=== PATIENT | female | born 1980 | race Caucasian/White ===

== ENCOUNTER 2017-05-18 10:05 | Day surgery (SDC) | payer BC, OTHER ==
[~2017-05-18] VITALS: Ht 167.6 cm; Wt 58.2 kg
[2017-05-18] MEDS ORDERED: SODIUM CHLORIDE 0.9% 1,000 ML IV ONE (10:46)
[2017-05-18 10:48] VITALS: BP 139/89
[2017-05-18] MEDS ORDERED: PLEASE ENTER HEIGHT AND WEIGHT MC SCH (11:00)
[2017-05-18] MEDS ORDERED: CYCL100C PO (11:09)
[2017-05-18] MEDS ORDERED: METO-93 PO (11:09)
[2017-05-18] MEDS ORDERED: PRED5TAB PO (11:09)
[2017-05-18] MEDS ORDERED: PRAV20TA2 PO (11:09)
[2017-05-18] MEDS ORDERED: LISI-167 PO (11:09)
[2017-05-18] MEDS ORDERED: ELET40TA PO (11:09)
[2017-05-18] MEDS ORDERED: EVER0.75 PO (11:09)
[2017-05-18] MEDS ORDERED: HEPARIN 1,000 UNITS/ML, 10ML ONE (12:03)
[2017-05-18] MEDS ORDERED: BIVALIRUDIN 250 MG ONE (12:03)
[2017-05-18] MEDS ORDERED: FENTANYL PF 100 MCG/2ML ONE ×2 (12:03→12:55)
[2017-05-18] MEDS ORDERED: VERAPAMIL 2.5 MG/ML, 2ML ONE (12:03)
[2017-05-18] MEDS ORDERED: NITROGLYCERIN 5 MG/ML, 10ML ONE (12:03)
[2017-05-18] MEDS ORDERED: DIPHENHYDRAMINE 50 MG/ML, 1ML ONE (12:03)
[2017-05-18] MEDS ORDERED: MIDAZOLAM 1 MG/ML, 5ML ONE ×2 (12:03→12:55)
[2017-05-18] MEDS ORDERED: SODIUM CHLORIDE 0.9% 1,000 ML IV SCH (13:28)
== END 2017-05-18 16:29 ==
LOC: CACL 10:05
PROVIDERS: ATTEND Internal Medicine Cardiovascular Disease
DX: I25.10 Atherosclerotic heart disease of native coronary artery without angina pectoris (principal); I10 Essential (primary) hypertension; N18.9 Chronic kidney disease, unspecified; E78.5 Hyperlipidemia, unspecified; G43.909 Migraine, unspecified, not intractable, without status migrainosus; Z94.1 Heart transplant status
CPT/HCPCS: 92978; 92979; 93458; 99156; 99157; C1753; C1769; C1887; C1894; J1200; J1644; J2250; J3010; Q9967; J0583

== ENCOUNTER 2018-03-09 07:38 | Emergency (ER) | payer BC ==
[~2018-03-09] VITALS: Ht 167.6 cm; Wt 59.0 kg
[~2018-03-09 07:38] MED LIST: CYCL100C PO; ELET40TA PO; EVER0.75 PO; LISI-167 PO; METO-93 PO; PRAV20TA2 PO; PRED5TAB PO
[2018-03-09] MEDS ORDERED: ONDANSETRON 2MG/ML, 2ML IVPush ONE (08:00)
[2018-03-09] MEDS ORDERED: SODIUM CHLORIDE 0.9% 1,000ML IVBOLUS ONE ×2 (08:00→09:30)
[2018-03-09] MEDS ORDERED: SODIUM CHLORIDE FLUSH 10ML SYR IVF ONE (08:00)
[2018-03-09] MEDS ORDERED: MORPHINE SULFATE 4 MG/ML, 1ML ONE ×2 (08:06→10:13)
[2018-03-09] MEDS ORDERED: ONDANSETRON 2MG/ML, 2ML ONE (08:06)
[2018-03-09] MEDS: MORPHINE SULFATE 4 MG/ML, 1ML IVPush PRN ×2 (08:19→10:17)
[2018-03-09 08:28] LABS: BASOPHILS # (AUTO) 0.01 x10^3/uL (0-0.1); BASOPHILS % (AUTO) 0 % (0-1); EOSINOPHILS # (AUTO) 0.05 x10^3/uL (0-0.4); EOSINOPHILS % (AUTO) 1 % (1-7); LYMPHOCYTES # (AUTO) 0.81 x10^3/uL (1-3.4); LYMPHOCYTES % (AUTO) 8 % (22-44); MD NO; MEAN CORPUSCULAR HEMOGLOBIN 30.1 pg (27.0-34.8); MEAN CORPUSCULAR HGB CONC 33.4 g/dL (32.4-35.8); MEAN CORPUSCULAR VOLUME 90.1 fL (80-100); MEAN PLATELET VOLUME 8.3 fL (7.4-10.4); MONOCYTES # (AUTO) 0.49 x10^3/uL (0.2-0.8); MONOCYTES % (AUTO) 5 % (2-9); NEUTROPHILS % (AUTO) 86 % (42-75); PLATELET COUNT 220 x10^3/uL (130-400); RED CELL DISTRIBUTION WIDTH 13.5 % (9.6-15.2)
[2018-03-09 08:36] LABS: RAPID INFLUENZA A Negative (Negative); RAPID INFLUENZA B Negative (Negative)
[2018-03-09 08:43] LABS: ALANINE AMINOTRANSFERASE 15 U/L (12-78); ANION GAP 7 mmol/L (5-15); CALCIUM 8.8 mg/dL (8.5-10.1); CHLORIDE 111 mmol/L (98-107); CREATININE 3.47 mg/dL (0.55-1.02)
[2018-03-09 08:46] LABS: ALKALINE PHOSPHATASE 64 U/L (45-117); BILIRUBIN,TOTAL 0.6 mg/dL (0.2-1.0); TOTAL PROTEIN 7.5 g/dL (6.4-8.2)
--- NOTE | 2018-03-09 09:03 | NUR ---
pt upright on gurney awake & more comfortable but continues to c/o DAVISON, responds approp to staff, NAD, comfort measures provided, zana light within akhil.
[2018-03-09] MEDS ORDERED: PROMETHAZINE 25 MG/ML, 1ML ONE (09:10)
[2018-03-09] MEDS ORDERED: SUMATRIPTAN 6MG/0.5ML SQ ONE ×2 (09:11→09:30)
[2018-03-09] MEDS ORDERED: PROMETHAZINE 25 MG/ML, 1ML IM ONE (09:30)
--- NOTE | 2018-03-09 09:57 | NUR ---
pt remains upright on gurney awake & more comfortable after meds, responds approp to staff, NAD, comfort measures provided, zana light within reach.
--- NOTE | 2018-03-09 11:00 | NUR ---
pt remains upright on gurney awake & mostly comfortable, responds approp to staff, NAD, comfort measures provided, zana light within reach.
--- NOTE | 2018-03-09 12:02 | NUR ---
pt upright on gurney awake & comfortable, responds approp to staff, NAD, comfort measures provided, mom at BS, call light within reach.
[2018-03-09 12:15] LABS: MICROSCOPIC NOT IND
[2018-03-09 12:18] LABS: CULTURE INDICATED? NO
[2018-03-09 12:19] LABS: HCG UR SG 1.011 (1.003-1.030)
[2018-03-09 12:38] VITALS: BP 154/105
--- NOTE | 2018-03-09 12:49 | NUR ---
Patient given discharge instructions and Rx, they have confirmed that they understand the instructions. Patient ambulatory with steady gait.
== END 2018-03-09 12:50 | disposition home or self-care (01) ==
LOC: ED 10:59
DX: J01.00 Acute maxillary sinusitis, unspecified (principal); K29.00 Acute gastritis without bleeding; I10 Essential (primary) hypertension; R50.9 Fever, unspecified; G43.909 Migraine, unspecified, not intractable, without status migrainosus; Z79.899 Other long term (current) drug therapy; Z94.1 Heart transplant status
CPT/HCPCS: 36415; 71045; 80053; 81003; 81025; 83605; 84145; 85025; 87040; 87400; 93005; 96361; 96372; 96374; 96375; 96376; 99284; J2405; J2550; J3030; J7030

== ENCOUNTER 2018-03-11 13:14 | Inpatient (IN) | payer BC ==
[~2018-03-11] VITALS: Ht 167.6 cm; Wt 54.2 kg
[2018-03-11] MEDS ORDERED: SODIUM CHLORIDE 0.9% 1,000 ML IV ONE (13:22)
[2018-03-11] MEDS ORDERED: PLEASE ENTER HEIGHT AND WEIGHT MC SCH (13:30)
[2018-03-11] MEDS ORDERED: ONDANSETRON 2MG/ML, 2ML IVPush ONE (13:30)
[2018-03-11] MEDS ORDERED: SODIUM CHLORIDE FLUSH 10ML SYR IVF ONE (13:30)
[2018-03-11 13:52] LABS: BASOPHILS # (AUTO) 0.01 x10^3/uL (0-0.1); BASOPHILS % (AUTO) 0 % (0-1); EOSINOPHILS # (AUTO) 0.14 x10^3/uL (0-0.4); EOSINOPHILS % (AUTO) 2 % (1-7); LYMPHOCYTES # (AUTO) 1.09 x10^3/uL (1-3.4); LYMPHOCYTES % (AUTO) 13 % (22-44); MD NO; MEAN CORPUSCULAR HEMOGLOBIN 30.5 pg (27.0-34.8); MEAN CORPUSCULAR HGB CONC 33.6 g/dL (32.4-35.8); MEAN CORPUSCULAR VOLUME 90.8 fL (80-100); MEAN PLATELET VOLUME 8.1 fL (7.4-10.4); MONOCYTES # (AUTO) 0.45 x10^3/uL (0.2-0.8); MONOCYTES % (AUTO) 5 % (2-9); NEUTROPHILS # (AUTO) 6.96 x10^3/uL (1.8-6.8); NEUTROPHILS % (AUTO) 81 % (42-75); PLATELET COUNT 248 x10^3/uL (130-400); RED BLOOD COUNT 3.88 x10^6/uL (3.82-5.3); RED CELL DISTRIBUTION WIDTH 13.7 % (9.6-15.2)
[2018-03-11] MEDS ORDERED: SODIUM CHLORIDE 0.9%, 500ML IVBOLUS ONE (14:00)
[2018-03-11] MEDS ORDERED: MORPHINE SULFATE 4 MG/ML, 1ML IVPush ONE (14:00)
[2018-03-11 14:03] LABS: ALANINE AMINOTRANSFERASE 25 U/L (12-78); ANION GAP 7 mmol/L (5-15); CHLORIDE 108 mmol/L (98-107)
[2018-03-11 14:05] LABS: ALKALINE PHOSPHATASE 72 U/L (45-117); BILIRUBIN,TOTAL 0.5 mg/dL (0.2-1.0); TOTAL PROTEIN 7.3 g/dL (6.4-8.2)
--- NOTE | 2018-03-11 14:05 | NUR ---
PT PRESENTED TO ED WITH N/V SINCE TODAY, FEVERS AND DIARRHEA SEVERAL TIMES SINCE TODAY. PT IS A HEART TRANSPLANT PT X 2. PT A&OX4. PT PLACED IN ROOM AND PLACED ON BP AND CONT. PULSE OXIMETER. ASSESSMENT COMPLETED
[2018-03-11] MEDS ORDERED: MORPHINE SULFATE 4 MG/ML, 1ML ONE (14:11)
[2018-03-11] MEDS ORDERED: ONDANSETRON 2MG/ML, 2ML ONE (14:11)
--- NOTE | 2018-03-11 14:52 | NUR ---
ULTRASOUND AT BEDSIDE.
--- NOTE | 2018-03-11 14:58 | NUR ---
REPORT GIVEN TO SADA POTTER
[2018-03-11] MEDS ORDERED: AMPICILLIN/SULBACTAM 3 GM in SODIUM CHLORIDE 0.9% 100 ML IV ONE (15:00)
[2018-03-11] MEDS ORDERED: LABETALOL 5MG/ML, 20ML IVPush ONE (15:30)
[2018-03-11] MEDS ORDERED: HYDROmorphone 1 MG/ML, 1ML ONE (15:48)
[2018-03-11] MEDS ORDERED: DOCUSATE 100 MG CAPSULE PO PRN (16:00)
[2018-03-11] MEDS ORDERED: ACETAMINOPHEN 325 MG TABLET PO PRN (16:00)
[2018-03-11] MEDS ORDERED: HYDROmorphone 2 MG/ML, 1ML IVPush ONE (16:00)
[2018-03-11] MEDS ORDERED: POLYETHYLENE GLYCOL 17 GM PACKET PO PRN (16:00)
[2018-03-11] MEDS ORDERED: morphine SULFATE 10 MG/ML, 1ML IVPush PRN (16:00)
[2018-03-11] MEDS ORDERED: ONDANSETRON 2MG/ML, 2ML IVPush PRN (16:00)
[2018-03-11] MEDS ORDERED: OXYMETAZOLINE NASAL SPRAY 0.05%, 15ML ONE (16:21)
[2018-03-11] MEDS ORDERED: OXYMETAZOLINE NASAL SPRAY 0.05%, 15ML NAS ONE (16:30)
[2018-03-11] MEDS ORDERED: hydrALAzine 20 MG/ML, 1ML IV PRN (16:30)
--- NOTE | 2018-03-11 16:30 | NUR ---
SBAR TELEPHONE HAND-OFF REPORT GIVEN TO RN TONNY.
[2018-03-11 16:45] VITALS: BP 138/92
[2018-03-11] MEDS: AMPICILLIN/SULBACTAM 3 GM in SODIUM CHLORIDE 0.9% 100 ML IV SCH ×2 (16:50→22:49)
[2018-03-11] MEDS ORDERED: ELETRIPTAN 40MG TABLET PO PRN (17:00)
[2018-03-11] MEDS: LACTATED RINGERS 1,000 ML IV SCH ×2 (17:11→22:52)
[2018-03-11 20:10] VITALS: BP 149/103
[2018-03-11] MEDS: METOPROLOL SUCCINATE 50 MG TAB.ER.24H PO SCH (20:54)
[2018-03-11] MEDS: PRAVASTATIN 20 MG TABLET PO SCH (20:54)
[2018-03-11] MEDS: CETIRIZINE 10 MG TABLET PO PRN (20:59)
[2018-03-11] MEDS: HYDROcodone/APAP 5/325 TABLET PO PRN (20:59)
[2018-03-12 01:22] VITALS: BP 143/96
[2018-03-12] MEDS: CETIRIZINE 10 MG TABLET PO PRN (05:19)
[2018-03-12] MEDS: AMPICILLIN/SULBACTAM 3 GM in SODIUM CHLORIDE 0.9% 100 ML IV SCH (05:19)
[2018-03-12] MEDS: HYDROcodone/APAP 5/325 TABLET PO PRN (05:20)
[2018-03-12 05:40] LABS: ALANINE AMINOTRANSFERASE 18 U/L (12-78); ALBUMIN 2.4 g/dL (3.4-5.0); ANION GAP 7 mmol/L (5-15); CALCIUM 8.2 mg/dL (8.5-10.1); CHLORIDE 113 mmol/L (98-107)
[2018-03-12 05:43] LABS: ALKALINE PHOSPHATASE 65 U/L (45-117); BILIRUBIN,TOTAL 0.6 mg/dL (0.2-1.0); CREATININE 3.11 mg/dL (0.55-1.02); TOTAL PROTEIN 6.1 g/dL (6.4-8.2)
[2018-03-12 06:34] VITALS: BP 152/85
[2018-03-12 07:16] VITALS: BP 150/106
[2018-03-12] MEDS: METOPROLOL SUCCINATE 50 MG TAB.ER.24H PO SCH ×2 (07:37→20:23)
[2018-03-12] MEDS: SENNA/DOCUSATE TABLET PO SCH (07:38)
[2018-03-12 08:01] LABS: MEAN CORPUSCULAR HEMOGLOBIN 30.2 pg (27.0-34.8); MEAN CORPUSCULAR HGB CONC 33.6 g/dL (32.4-35.8); MEAN CORPUSCULAR VOLUME 89.9 fL (80-100); MEAN PLATELET VOLUME 8.6 fL (7.4-10.4); PLATELET COUNT 176 x10^3/uL (130-400); RED BLOOD COUNT 3.23 x10^6/uL (3.82-5.3); RED CELL DISTRIBUTION WIDTH 13.3 % (9.6-15.2)
[2018-03-12 08:02] LABS: BASOPHILS # (AUTO) 0.04 x10^3/uL (0-0.1); BASOPHILS % (AUTO) 1 % (0-1); EOSINOPHILS # (AUTO) 0.15 x10^3/uL (0-0.4); EOSINOPHILS % (AUTO) 2 % (1-7); LYMPHOCYTES # (AUTO) 1.22 x10^3/uL (1-3.4); LYMPHOCYTES % (AUTO) 18 % (22-44); MD SCAN; MONOCYTES # (AUTO) 0.45 x10^3/uL (0.2-0.8); MONOCYTES % (AUTO) 7 % (2-9); NEUTROPHILS # (AUTO) 4.85 x10^3/uL (1.8-6.8); NEUTROPHILS % (AUTO) 72 % (42-75)
[2018-03-12] MEDS ORDERED: PHARMACY MAY ADJ FOR RENAL FX MC PRN (08:30)
[2018-03-12] MEDS ORDERED: ERGOCALCIFEROL 50,000 UNIT CAPSULE PO SCH (08:30)
[2018-03-12] MEDS ORDERED: AMOXICILLIN/CLAV 875-125MG TABLET PO SCH (11:30)
[2018-03-12] MEDS ORDERED: MAGNESIUM SULFATE PMX 2GM/50ML 50 ML IV ONE (11:30)
[2018-03-12] MEDS ORDERED: LORazepam 2 MG/ML, 1ML IVPush ONE (12:00)
[2018-03-12] MEDS: SODIUM BICARBONATE 8.4% 75 MEQ in SODIUM CHLORIDE 0.45% 1,000 ML IV SCH ×2 (12:08→20:22)
[2018-03-12] MEDS ORDERED: IRON SUCROSE COMPLEX 100MG/5ML IV ONE (14:00)
[2018-03-12 14:08] VITALS: BP 137/93
[2018-03-12 16:31] LABS: ANION GAP 7 mmol/L (5-15); CALCIUM 8.2 mg/dL (8.5-10.1); CHLORIDE 109 mmol/L (98-107); CREATININE 2.82 mg/dL (0.55-1.02)
[2018-03-12] MEDS ORDERED: AMPICILLIN/SULBACTAM 3 GM in SODIUM CHLORIDE 0.9% 100 ML IV SCH ×2 (17:00)
[2018-03-12] MEDS ORDERED: CYANOCOBALAMIN 1,000 MCG/ML, 1ML IM ONE (17:30)
[2018-03-12 20:16] VITALS: BP 149/108
[2018-03-12] MEDS: AMOXICILLIN/CLAV 500-125MG TABLET PO SCH (20:22)
[2018-03-12] MEDS: PRAVASTATIN 20 MG TABLET PO SCH (20:22)
[2018-03-12] MEDS: LORazepam 2 MG/ML, 1ML IVPush PRN ×2 (20:28→21:39)
[2018-03-13 03:30] VITALS: BP 153/108
[2018-03-13 05:50] LABS: ALBUMIN 2.5 g/dL (3.4-5.0); ANION GAP 8 mmol/L (5-15); BASOPHILS # (AUTO) 0.01 x10^3/uL (0-0.1); BASOPHILS % (AUTO) 0 % (0-1); CALCIUM 8.1 mg/dL (8.5-10.1); CHLORIDE 109 mmol/L (98-107); EOSINOPHILS # (AUTO) 0.14 x10^3/uL (0-0.4); EOSINOPHILS % (AUTO) 3 % (1-7); LYMPHOCYTES # (AUTO) 1.13 x10^3/uL (1-3.4); LYMPHOCYTES % (AUTO) 21 % (22-44); MD NO; MEAN CORPUSCULAR HEMOGLOBIN 30.5 pg (27.0-34.8); MEAN CORPUSCULAR HGB CONC 34.1 g/dL (32.4-35.8); MEAN CORPUSCULAR VOLUME 89.5 fL (80-100); MEAN PLATELET VOLUME 8.4 fL (7.4-10.4); MONOCYTES # (AUTO) 0.45 x10^3/uL (0.2-0.8); MONOCYTES % (AUTO) 8 % (2-9); NEUTROPHILS # (AUTO) 3.67 x10^3/uL (1.8-6.8); NEUTROPHILS % (AUTO) 68 % (42-75); PLATELET COUNT 184 x10^3/uL (130-400); RED BLOOD COUNT 3.33 x10^6/uL (3.82-5.3); RED CELL DISTRIBUTION WIDTH 13.2 % (9.6-15.2)
[2018-03-13 07:19] LABS: CHLORIDE,URINE RANDOM 130 mmol/L; POTASSIUM,URINE RANDOM 16 mmol/L; SODIUM,URINE RANDOM 140 mmol/L; TOTAL PROTEIN,URINE RANDOM 33 mg/dL (0-12)
[2018-03-13 07:53] VITALS: BP 160/96
[2018-03-13] MEDS ORDERED: ERGO500017 PO (08:10)
[2018-03-13] MEDS ORDERED: AMOX-367 PO (08:10)
[2018-03-13] MEDS: SODIUM BICARBONATE 8.4% 75 MEQ in SODIUM CHLORIDE 0.45% 1,000 ML IV SCH (08:21)
[2018-03-13] MEDS: METOPROLOL SUCCINATE 50 MG TAB.ER.24H PO SCH (08:21)
[2018-03-13] MEDS: SENNA/DOCUSATE TABLET PO SCH (08:21)
[2018-03-13] MEDS ORDERED: FERROUS SULFATE 325 MG TABLET PO SCH (08:30)
[2018-03-13] MEDS ORDERED: CYAN10005 PO (08:30)
[2018-03-13] MEDS ORDERED: FERR-51 PO (08:30)
[2018-03-13] MEDS ORDERED: IRON SUCROSE COMPLEX 100MG/5ML IV ONE (08:30)
[2018-03-13] MEDS: AMOXICILLIN/CLAV 500-125MG TABLET PO SCH (08:32)
[2018-03-13] MEDS ORDERED: CYANOCOBALAMIN 1,000 MCG TABLET PO SCH (09:00)
== END 2018-03-13 09:25 | disposition home or self-care (01) | DRG 152 ==
LOC: ED 15:02 → EDIP 15:03 → ED 15:12 → SUATTDRO 15:23 → 5SO 16:51
PROVIDERS: ADMIT Family Medicine; ATTEND Family Medicine
DX: J01.00 Acute maxillary sinusitis, unspecified (principal); N17.0 Acute kidney failure with tubular necrosis; N18.4 Chronic kidney disease, stage 4 (severe); Z94.1 Heart transplant status; D64.9 Anemia, unspecified; E53.8 Deficiency of other specified B group vitamins; E83.42 Hypomagnesemia; E86.0 Dehydration; E87.5 Hyperkalemia; G43.909 Migraine, unspecified, not intractable, without status migrainosus; I12.9 Hypertensive chronic kidney disease with stage 1 through stage 4 chronic kidney disease, or unspecified chronic kidney disease; K80.20 Calculus of gallbladder without cholecystitis without obstruction; R19.7 Diarrhea, unspecified; Z79.899 Other long term (current) drug therapy
CPT/HCPCS: 36415; 70450; 70486; 76770; 80048; 80053; 80158; 80169; 82040; 82043; 82306; 82436; 82570; 82607; 82728; 83540; 83550; 83605; 83735; 83970; 84100; 84133; 84156; 84300; 85025; 96361; 96365; 96375; G0378; J0295; J1170; J1756; J2405; J2060; J3420; J3475; J7030; J7040; J7120; J7512

== ENCOUNTER 2018-06-01 16:25 | Emergency (ER) | payer BC ==
[~2018-06-01] VITALS: Ht 167.6 cm; Wt 60.3 kg
[~2018-06-01 16:25] MED LIST changes: +AMOX-367 PO; +CYAN10005 PO; +ERGO500017 PO; +FERR-51 PO
[2018-06-01] MEDS ORDERED: SODIUM CHLORIDE 0.9% 1,000 ML IV ONE (16:36)
[2018-06-01] MEDS ORDERED: SODIUM CHLORIDE FLUSH 10ML SYR IVF ONE (17:00)
--- NOTE | 2018-06-01 17:02 | NUR ---
ATTEMPTED US, PT GETTING IV
[2018-06-01 17:06] LABS: BASOPHILS # (AUTO) 0.06 x10^3/uL (0-0.1); BASOPHILS % (AUTO) 1 % (0-1); EOSINOPHILS % (AUTO) 3 % (1-7); LYMPHOCYTES # (AUTO) 1.76 x10^3/uL (1-3.4); LYMPHOCYTES % (AUTO) 24 % (22-44); MD NO; MEAN CORPUSCULAR HEMOGLOBIN 31.4 pg (27.0-34.8); MEAN CORPUSCULAR HGB CONC 34.2 g/dL (32.4-35.8); MEAN CORPUSCULAR VOLUME 91.9 fL (80-100); MEAN PLATELET VOLUME 8.1 fL (7.4-10.4); MONOCYTES % (AUTO) 10 % (2-9); NEUTROPHILS # (AUTO) 4.53 x10^3/uL (1.8-6.8); NEUTROPHILS % (AUTO) 62 % (42-75); PLATELET COUNT 244 x10^3/uL (130-400); RED BLOOD COUNT 3.71 x10^6/uL (3.82-5.3); RED CELL DISTRIBUTION WIDTH 12.9 % (9.6-15.2)
[2018-06-01 17:12] LABS: ALBUMIN 3.5 g/dL (3.4-5.0); ANION GAP 7 mmol/L (5-15); CHLORIDE 100 mmol/L (98-107); CREATININE 3.32 mg/dL (0.55-1.02)
[2018-06-01] MEDS ORDERED: SUMATRIPTAN 6MG/0.5ML SQ STA (17:16)
[2018-06-01] MEDS ORDERED: SUMATRIPTAN 6MG/0.5ML SQ ONE (17:27)
--- NOTE | 2018-06-01 17:30 | NUR ---
Ultrasound in progress
--- NOTE | 2018-06-01 18:53 | NUR ---
TASK RN: PT RESTING QUIETLY, NO DISTRESS. PT HAS BEEN CLEARED FOR DISCHARGE. STATES PAIN IS IMPROVED, NOW RATES 2/10. AMBULATING WELL UPON DEPARTURE.
[2018-06-01 18:54] VITALS: BP 167/111
== END 2018-06-01 18:56 | disposition home or self-care (01) ==
LOC: ED 17:39
DX: N17.9 Acute kidney failure, unspecified (principal); Z94.1 Heart transplant status; I10 Essential (primary) hypertension
CPT/HCPCS: 36415; 76770; 80048; 82040; 85025; 96372; 99284; J3030

== ENCOUNTER 2018-06-08 17:44 | Observation (INO) | payer BC ==
[~2018-06-08] VITALS: Ht 167.6 cm; Wt 46.0 kg
[2018-06-08] MEDS ORDERED: SODIUM CHLORIDE FLUSH 10ML SYR IVF ONE ×2 (18:00→18:30)
[2018-06-08] MEDS ORDERED: ONDANSETRON 2MG/ML, 2ML ONE ×2 (18:05→21:48)
[2018-06-08] MEDS ORDERED: SUMATRIPTAN 6MG/0.5ML SQ ONE ×2 (18:06→18:30)
[2018-06-08] MEDS ORDERED: DIPHENHYDRAMINE 50 MG/ML, 1ML ONE (18:06)
[2018-06-08 18:19] LABS: BASOPHILS # (AUTO) 0.02 x10^3/uL (0-0.1); BASOPHILS % (AUTO) 0 % (0-1); EOSINOPHILS # (AUTO) 0.12 x10^3/uL (0-0.4); EOSINOPHILS % (AUTO) 1 % (1-7); LYMPHOCYTES # (AUTO) 1.72 x10^3/uL (1-3.4); LYMPHOCYTES % (AUTO) 20 % (22-44); MD NO; MEAN CORPUSCULAR HEMOGLOBIN 30.8 pg (27.0-34.8); MEAN CORPUSCULAR HGB CONC 33.9 g/dL (32.4-35.8); MEAN CORPUSCULAR VOLUME 90.9 fL (80-100); MEAN PLATELET VOLUME 8.4 fL (7.4-10.4); MONOCYTES % (AUTO) 6 % (2-9); NEUTROPHILS # (AUTO) 6.13 x10^3/uL (1.8-6.8); NEUTROPHILS % (AUTO) 72 % (42-75); PLATELET COUNT 264 x10^3/uL (130-400); RED BLOOD COUNT 4.48 x10^6/uL (3.82-5.3); RED CELL DISTRIBUTION WIDTH 12.7 % (9.6-15.2)
--- NOTE | 2018-06-08 18:25 | NUR ---
BREAK RN: THIS IS A 38 YO FEMALE WHO PRESENTS TO THE ER C/O 10/10 PAIN DAVISON WITH N/V AND PHOTOSENSITIVITY. PT TOOK HOME MEDICATIONS FOR MIGRAINES W/O RELIEF. PT AO X 4. PERRLA. NO NUERO DEFICITS OR VISION CHANGES. SPENCER DUARTE WAS AT BEDSIDE FOR EVAL. PT MEDICATED ORDERED FOR PAIN/NAUSEA. MOTHER AT BEDSIDE. PT ON CONT BP, CARDIAC AND O2 MONITORS. CALL LIGHT WITHIN REACH. REPORT TO PRIMARY RN AZEB.
[2018-06-08] MEDS ORDERED: SODIUM CHLORIDE 0.9% 1,000ML IVBOLUS ONE ×2 (18:30→21:00)
[2018-06-08] MEDS ORDERED: DIPHENHYDRAMINE 50 MG/ML, 1ML IVPush ONE (18:30)
[2018-06-08] MEDS ORDERED: ONDANSETRON 2MG/ML, 2ML IVPush ONE ×2 (18:30→22:00)
[2018-06-08] MEDS ORDERED: HYDROmorphone 2 MG/ML, 1ML ONE ×2 (19:09→21:48)
[2018-06-08] MEDS: HYDROmorphone 2 MG/ML, 1ML IVPush PRN ×2 (19:14→19:58)
--- NOTE | 2018-06-08 19:15 | NUR ---
PT STATES DAVISON STILL RATED 8/10, NO N/V. PT MEDICATED WITH DILAUDID PER ERP ORDER. VS UPDATED IN COMPUTER. FAMILY AT BS, CALL LIGHT WITHIN REACH.
[2018-06-08 19:21] LABS: ALANINE AMINOTRANSFERASE 20 U/L (12-78); ALBUMIN 3.2 g/dL (3.4-5.0); ANION GAP 6 mmol/L (5-15); CALCIUM 8.3 mg/dL (8.5-10.1); CHLORIDE 111 mmol/L (98-107); CREATININE 2.74 mg/dL (0.55-1.02)
[2018-06-08 19:24] LABS: ALKALINE PHOSPHATASE 60 U/L (45-117); BILIRUBIN,TOTAL 0.3 mg/dL (0.2-1.0); TOTAL PROTEIN 6.7 g/dL (6.4-8.2)
--- NOTE | 2018-06-08 20:07 | NUR ---
PT REMEDICATED FOR PERSISTENT PAIN, RATED 8/10 STILL. PT ASKED TO PROVIDE UA, STATES SHE CANNOT DO SO AT THIS TIME. NOTE TO ERP TO INFORM
[2018-06-08] MEDS ORDERED: METOCLOPRAMIDE 5 MG/ML, 2ML ONE (20:52)
--- NOTE | 2018-06-08 20:59 | NUR ---
REGLAN GIVEN AND 2ND NS BOLUS INFUSING
[2018-06-08] MEDS ORDERED: METOCLOPRAMIDE 5 MG/ML, 2ML IVPush ONE (21:00)
[2018-06-08] MEDS ORDERED: HYDROmorphone 2 MG/ML, 1ML IVPush PRN (22:00)
--- NOTE | 2018-06-08 22:17 | NUR ---
2ND LITER INFUSED, PT STATES ADDITIONAL PAIN MED HELPED AND WANTS TO GO HOME. NOTE TO ERP FOR RECHECK.
--- NOTE | 2018-06-08 22:50 | NUR ---
PT TO BE ADMITTED. AWAITING ROOM ASSIGNMENT. MED REC COMPLETED.
--- NOTE | 2018-06-08 23:23 | NUR ---
REPORT TO CORBY POTTER.
--- NOTE | 2018-06-08 23:23 | NUR ---
REPORT RECEIVED FROM TARIQ MEREDITH. ASSUMED CARE OF PT. PT SLEEPING. RESPIRATIONS EVEN AND UNLABORED. VITALS STABLE. AWAITING ADMIT ORDER FOR PT TO BE ADMITTED. WILL CONTINUE TO MONITOR.
[2018-06-08] MEDS ORDERED: PROMETHAZINE 25 MG/ML, 1ML ONE (23:54)
[2018-06-08] MEDS ORDERED: MAGNESIUM SULFATE PMX 2GM/50ML 50 ML ONE (23:54)
[2018-06-09] MEDS ORDERED: MAGNESIUM SULFATE PMX 2GM/50ML 50 ML IV ONE
[2018-06-09] MEDS ORDERED: ELETRIPTAN 40MG TABLET PO PRN
--- NOTE | 2018-06-09 00:09 | NUR ---
PT STILL VOMITING AND STILL C/O DAVISON. PT MEDICATED PER EMAR. 5 RIGHTS ADDRESSED. AWAITING ADMIT ORDER FOR PT TO BE ADMITTED
[2018-06-09] MEDS ORDERED: BISACODYL 10 MG SUPP PR PRN (00:30)
[2018-06-09] MEDS ORDERED: PROMETHAZINE 25 MG/ML, 1ML IM PRN (00:30)
[2018-06-09] MEDS ORDERED: PHARMACY MAY ADJ FOR RENAL FX MC PRN (00:30)
[2018-06-09] MEDS ORDERED: LABETALOL 5 MG/ML SYRINGE IVPush PRN (00:30)
[2018-06-09] MEDS ORDERED: HYDROmorphone 2 MG/ML, 1ML IVPush PRN (00:30)
[2018-06-09] MEDS ORDERED: METOCLOPRAMIDE 5 MG/ML, 2ML IVPush PRN (00:30)
[2018-06-09] MEDS ORDERED: LIDODERM 5% PATCH TD PRN (00:30)
[2018-06-09] MEDS ORDERED: SUMATRIPTAN 6MG/0.5ML SQ ONE (00:30)
--- NOTE | 2018-06-09 00:49 | NUR ---
REPORT CALLED TO TARIQ BURNETT. FLOOR READY FOR PT. TRANSPORT.
[2018-06-09 01:07] VITALS: BP 155/101
[2018-06-09] MEDS: D5%-0.45% NACL 1,000 ML IV SCH ×2 (01:46→11:30)
[2018-06-09 03:18] VITALS: BP 143/98
[2018-06-09 04:03] LABS: HCG UR SG 1.012 (1.003-1.030); MICROSCOPIC NOT IND
[2018-06-09 04:04] LABS: CULTURE INDICATED? NO
[2018-06-09] MEDS ORDERED: CYCLOSPORINE MODIFIED 25 MG PO SCH (09:00)
[2018-06-09] MEDS ORDERED: METOPROLOL SUCCINATE 100 MG TAB.ER.24H PO SCH (09:00)
[2018-06-09] MEDS ORDERED: EVEROLIMUS 0.75 MG PO SCH (09:00)
[2018-06-09] MEDS ORDERED: CYCLOSPORINE-MODIFIED (NEORAL) 100 MG CAPSULE PO SCH (09:00)
[2018-06-09] MEDS ORDERED: FAMOTIDINE 20 MG/2 ML IVPush SCH (09:00)
[2018-06-09] MEDS ORDERED: ONDANSETRON 2MG/ML, 2ML IVPush PRN (09:30)
[2018-06-09] MEDS ORDERED: DIPHENHYDRAMINE 50 MG/ML, 1ML IVPush PRN (10:00)
[2018-06-09] MEDS ORDERED: CYCL100C PO (12:05)
[2018-06-09 13:49] VITALS: BP 147/98
[2018-06-09] MEDS ORDERED: PRAVASTATIN 20 MG TABLET PO SCH (21:00)
== END 2018-06-09 14:10 | disposition home or self-care (01) ==
LOC: ED 20:34 → UNDOADMOB 06-09 00:04 → EDIP 06-09 00:04 → INTOOBSV 06-09 00:04 → EDIP 06-09 00:11 → 4WST 06-09 01:09 → EDIP 06-09 01:09 → 4WST 06-09 01:09 → DCLOUNGE 06-09 13:58 → 4WST 06-09 13:58 → UNDODISOB 06-09 14:05 → DCLOUNGE 06-10 11:00 → 4WST 06-10 11:00
PROVIDERS: ADMIT Internal Medicine; ATTEND Internal Medicine
DX: R11.2 Nausea with vomiting, unspecified (principal); G43.919 Migraine, unspecified, intractable, without status migrainosus; I12.9 Hypertensive chronic kidney disease with stage 1 through stage 4 chronic kidney disease, or unspecified chronic kidney disease; N18.9 Chronic kidney disease, unspecified; N17.9 Acute kidney failure, unspecified; R00.0 Tachycardia, unspecified; E86.0 Dehydration; Z94.1 Heart transplant status; Z79.899 Other long term (current) drug therapy
CPT/HCPCS: 36415; 80053; 80158; 81003; 81025; 83690; 83735; 85025; 93005; 96361; 96365; 96366; 96372; 96375; 96376; 99284; G0378; J1170; J1200; J2405; J2550; J2765; J3030; J3475; J7030; J7512

== ENCOUNTER 2018-10-17 09:37 | Inpatient (IN) | payer BC ==
[~2018-10-17] VITALS: Ht 167.6 cm; Wt 59.0 kg
[~2018-10-17 09:37] MED LIST changes: +CYAN-27 PO; -CYAN10005 PO
[2018-10-17 10:06] VITALS: BP 152/101
[2018-10-17 12:27] LABS: BASOPHILS # (AUTO) 0.09 x10^3/uL (0-0.1); BASOPHILS % (AUTO) 1 % (0-1); EOSINOPHILS # (AUTO) 0.17 x10^3/uL (0-0.4); EOSINOPHILS % (AUTO) 3 % (1-7); LYMPHOCYTES # (AUTO) 1.23 x10^3/uL (1-3.4); LYMPHOCYTES % (AUTO) 19 % (22-44); MD NO; MEAN CORPUSCULAR HEMOGLOBIN 29.7 pg (27.0-34.8); MEAN CORPUSCULAR HGB CONC 33.2 g/dL (32.4-35.8); MEAN CORPUSCULAR VOLUME 89.5 fL (80-100); MEAN PLATELET VOLUME 7.9 fL (7.4-10.4); MONOCYTES # (AUTO) 0.51 x10^3/uL (0.2-0.8); MONOCYTES % (AUTO) 8 % (2-9); NEUTROPHILS # (AUTO) 4.37 x10^3/uL (1.8-6.8); NEUTROPHILS % (AUTO) 69 % (42-75); PLATELET COUNT 217 x10^3/uL (130-400); RED BLOOD COUNT 3.81 x10^6/uL (3.82-5.3); RED CELL DISTRIBUTION WIDTH 13.3 % (9.6-15.2)
[2018-10-17 12:40] LABS: ALBUMIN 3.3 g/dL (3.4-5.0); ANION GAP 9 mmol/L (5-15); CALCIUM 8.7 mg/dL (8.5-10.1); CHLORIDE 109 mmol/L (98-107)
[2018-10-17 12:46] LABS: ALANINE AMINOTRANSFERASE 27 U/L (12-78); ALKALINE PHOSPHATASE 57 U/L (45-117); BILIRUBIN,TOTAL 0.6 mg/dL (0.2-1.0); CREATININE 3.18 mg/dL (0.55-1.02); TOTAL PROTEIN 7.1 g/dL (6.4-8.2)
[2018-10-17] MEDS ORDERED: ALBUMIN HUMAN 5% IV ONE (14:00)
[2018-10-17] MEDS ORDERED: CALCIUM GLUCONATE 4.6 MEQ/10 ML IV ONE (14:00)
[2018-10-17 15:45] VITALS: BP 126/82
[2018-10-17 16:16] VITALS: BP 126/82
== END 2018-10-17 17:47 | disposition home or self-care (01) | DRG 315 ==
LOC: 4WST 09:37
PROVIDERS: ADMIT Internal Medicine Cardiovascular Disease; ATTEND Internal Medicine Cardiovascular Disease
PROC: 5A1D70Z Performance of Urinary Filtration, Intermittent, Less than 6 Hours Per Day (ICD-10-PCS; principal; 2018-10-17)
DX: T86.21 Heart transplant rejection (principal); N18.4 Chronic kidney disease, stage 4 (severe); I42.8 Other cardiomyopathies; Y83.0 Surgical operation with transplant of whole organ as the cause of abnormal reaction of the patient, or of later complication, without mention of misadventure at the time of the procedure; G43.909 Migraine, unspecified, not intractable, without status migrainosus; I12.9 Hypertensive chronic kidney disease with stage 1 through stage 4 chronic kidney disease, or unspecified chronic kidney disease; Z91.041 Radiographic dye allergy status; Y92.89 Other specified places as the place of occurrence of the external cause; D64.9 Anemia, unspecified; Z88.8 Allergy status to other drugs, medicaments and biological substances
CPT/HCPCS: 36415; 36514; 80053; 83735; 85025; 85384; G0378; J0610

== ENCOUNTER 2018-10-18 08:31 | Inpatient (IN) | payer BC ==
[~2018-10-18] VITALS: Ht 167.6 cm; Wt 59.0 kg
[2018-10-18 08:43] VITALS: BP 113/71
[2018-10-18 09:40] LABS: BASOPHILS % (AUTO) 0 % (0-1); EOSINOPHILS # (AUTO) 0.08 x10^3/uL (0-0.4); EOSINOPHILS % (AUTO) 1 % (1-7); LYMPHOCYTES # (AUTO) 0.92 x10^3/uL (1-3.4); LYMPHOCYTES % (AUTO) 11 % (22-44); MD NO; MEAN CORPUSCULAR HEMOGLOBIN 29.9 pg (27.0-34.8); MEAN CORPUSCULAR HGB CONC 33.3 g/dL (32.4-35.8); MEAN CORPUSCULAR VOLUME 89.6 fL (80-100); MEAN PLATELET VOLUME 8.3 fL (7.4-10.4); MONOCYTES # (AUTO) 0.33 x10^3/uL (0.2-0.8); MONOCYTES % (AUTO) 4 % (2-9); NEUTROPHILS # (AUTO) 7.36 x10^3/uL (1.8-6.8); NEUTROPHILS % (AUTO) 85 % (42-75); PLATELET COUNT 212 x10^3/uL (130-400); RED BLOOD COUNT 3.75 x10^6/uL (3.82-5.3); RED CELL DISTRIBUTION WIDTH 13.1 % (9.6-15.2)
[2018-10-18 09:52] LABS: ALANINE AMINOTRANSFERASE 21 U/L (12-78); ALBUMIN 4.2 g/dL (3.4-5.0); ANION GAP 4 mmol/L (5-15); CALCIUM 8.2 mg/dL (8.5-10.1); CHLORIDE 115 mmol/L (98-107); CREATININE 3.19 mg/dL (0.55-1.02)
[2018-10-18 09:54] LABS: ALKALINE PHOSPHATASE 34 U/L (45-117); BILIRUBIN,TOTAL 0.5 mg/dL (0.2-1.0); TOTAL PROTEIN 6.2 g/dL (6.4-8.2)
[2018-10-18] MEDS ORDERED: CALCIUM GLUCONATE 4.6 MEQ/10 ML IV ONE (10:30)
[2018-10-18] MEDS ORDERED: ALBUMIN HUMAN 5% 2,500 ML IV ONE (10:30)
== END 2018-10-18 13:03 | disposition home or self-care (01) | DRG 315 ==
LOC: 4WST 08:31
PROVIDERS: ADMIT Internal Medicine Cardiovascular Disease; ATTEND Internal Medicine Cardiovascular Disease
PROC: 6A550Z3 Pheresis of Plasma, Single (ICD-10-PCS; principal; 2018-10-18)
DX: T86.21 Heart transplant rejection (principal); N18.4 Chronic kidney disease, stage 4 (severe); I12.9 Hypertensive chronic kidney disease with stage 1 through stage 4 chronic kidney disease, or unspecified chronic kidney disease; M10.9 Gout, unspecified; G43.909 Migraine, unspecified, not intractable, without status migrainosus; D64.9 Anemia, unspecified; Y83.0 Surgical operation with transplant of whole organ as the cause of abnormal reaction of the patient, or of later complication, without mention of misadventure at the time of the procedure; Y92.89 Other specified places as the place of occurrence of the external cause; Z88.8 Allergy status to other drugs, medicaments and biological substances
CPT/HCPCS: 36415; 36514; 80053; 83735; 85025; 85384; G0378; J0610

== ENCOUNTER 2019-02-20 20:27 | Inpatient (IN) | payer BC ==
[~2019-02-20] VITALS: Ht 167.6 cm; Wt 60.8 kg
--- NOTE | 2019-02-20 20:50 | NUR ---
THIS IS A 39 YO F W/ C/O DIZZINESS AND NAUSEA SINCE WEDNESDAY. C/O EPIGASTRIC PAIN. PT STATES SHE HAS STAGE 4 RENAL INSUFFICIENCY AND NEEDS A KIDNEY TRANSPLANT. RESPIRATIONS ARE EVEN AND UNLABORED, NADN. VS STABLE. CALL LIGHT IN REACH. PT RESTING ON GURNEY AWAITING EVAL BY ED PROVIDER.
--- NOTE | 2019-02-20 20:51 | NUR ---
PT AMBULATED TO THE BATHROOM W/ A STEADY GAIT.
[2019-02-20] MEDS ORDERED: SODIUM CHLORIDE 0.9% 1,000ML IVBOLUS ONE (21:00)
[2019-02-20] MEDS ORDERED: SODIUM CHLORIDE FLUSH 10ML SYR IVF ONE (21:00)
[2019-02-20 21:05] LABS: MEAN CORPUSCULAR HGB CONC 33.1 g/dL (32.4-35.8); MEAN CORPUSCULAR VOLUME 87.5 fL (80-100); MEAN PLATELET VOLUME 8.5 fL (7.4-10.4); PLATELET COUNT 279 x10^3/uL (130-400); RED BLOOD COUNT 4.49 x10^6/uL (3.82-5.3); RED CELL DISTRIBUTION WIDTH 12.3 % (9.6-15.2)
[2019-02-20 21:15] LABS: ALANINE AMINOTRANSFERASE 21 U/L (12-78); ALBUMIN 3.1 g/dL (3.4-5.0); ANION GAP 7 mmol/L (5-15); CALCIUM 8.6 mg/dL (8.5-10.1); CHLORIDE 108 mmol/L (98-107); CREATININE 3.34 mg/dL (0.55-1.02)
[2019-02-20] MEDS ORDERED: ONDANSETRON 2MG/ML, 2ML ONE ×2 (21:17→21:51)
[2019-02-20 21:18] LABS: ALKALINE PHOSPHATASE 61 U/L (45-117); BILIRUBIN,TOTAL 0.6 mg/dL (0.2-1.0); TOTAL PROTEIN 7.3 g/dL (6.4-8.2)
[2019-02-20 21:27] LABS: BASOPHILS # (AUTO) 0.07 x10^3/uL (0-0.1); BASOPHILS % (AUTO) 1 % (0-1); EOSINOPHILS # (AUTO) 0.19 x10^3/uL (0-0.4); EOSINOPHILS % (AUTO) 1 % (1-7); LYMPHOCYTES # (AUTO) 1.79 x10^3/uL (1-3.4); LYMPHOCYTES % (AUTO) 12 % (22-44); MD SCAN; MONOCYTES # (AUTO) 0.41 x10^3/uL (0.2-0.8); MONOCYTES % (AUTO) 3 % (2-9); NEUTROPHILS % (AUTO) 84 % (42-75)
[2019-02-20] MEDS ORDERED: MAGNESIUM SULFATE PMX 2GM/50ML 50 ML IV ONE (21:30)
[2019-02-20] MEDS ORDERED: ONDANSETRON 2MG/ML, 2ML IVPush ONE ×2 (21:30)
[2019-02-20] MEDS ORDERED: FAMOTIDINE 20 MG/2 ML IVPush ONE (21:30)
[2019-02-20] MEDS ORDERED: MAALOX/HYOSCYAMINE/LIDOCAINE 45 ML BTL PO ONE (21:30)
--- NOTE | 2019-02-20 21:34 | NUR ---
IV PLACED, FLUIDS STARTED. PT MEDICATED FOR NAUSEA. FLU SWAB COLLECTED AND SENT TO LAB. MD TO BEDSIDE TO RECHECK PT. ADDITIONAL ORDERS RECEIVED FOR MEDS D/T PT C/O DIFFUSE ABD PAIN. FAMILY AT BEDSIDE. CALL LIGHT WITHIN REACH.
[2019-02-20] MEDS ORDERED: FAMOTIDINE 20 MG/2 ML ONE (21:51)
[2019-02-20] MEDS ORDERED: MAGNESIUM SULFATE PMX 2GM/50ML 50 ML ONE (21:51)
[2019-02-20] MEDS ORDERED: MAALOX/HYOSCYAMINE/LIDOCAINE 45 ML BTL ONE (21:51)
[2019-02-20] MEDS ORDERED: MORPHINE SULFATE 4 MG/ML, 1ML ONE (21:55)
[2019-02-20 21:59] LABS: RAPID INFLUENZA A Negative (Negative); RAPID INFLUENZA B Negative (Negative)
[2019-02-20] MEDS ORDERED: MORPHINE SULFATE 4 MG/ML, 1ML IVPush ONE (22:00)
[2019-02-20] MEDS ORDERED: CEFTRIAXONE PMX 1GM/50ML 50 ML IV ONE (22:30)
[2019-02-20] MEDS ORDERED: PROMETHAZINE 25 MG/ML, 1ML IM ONE (22:30)
[2019-02-20] MEDS ORDERED: CEFTRIAXONE PMX 1GM/50ML 50 ML ONE (22:33)
[2019-02-20] MEDS ORDERED: PROMETHAZINE 25 MG/ML, 1ML ONE (22:33)
[2019-02-20] MEDS ORDERED: SODIUM CHLORIDE 0.9% 1,000 ML IV ONE (23:05)
[2019-02-20] MEDS ORDERED: ONDANSETRON 2MG/ML, 2ML IVPush PRN (23:30)
[2019-02-20] MEDS ORDERED: SODIUM CHLORIDE FLUSH 10ML SYR IVF PRN (23:30)
[2019-02-20] MEDS ORDERED: DOXYCYCLINE 100 MG in DEXTROSE 5% 250 ML IV ONE (23:30)
[2019-02-20] MEDS ORDERED: MORPHINE SULFATE 4 MG/ML, 1ML IVPush PRN (23:30)
[2019-02-20] MEDS ORDERED: PROMETHAZINE 25 MG/ML, 1ML IM PRN (23:30)
[2019-02-21 00:15] VITALS: BP 115/62
[2019-02-21 00:35] VITALS: BP 115/62
[2019-02-21] MEDS ORDERED: ONDANSETRON 2MG/ML, 2ML IVPush ONE (02:30)
[2019-02-21] MEDS ORDERED: SODIUM CHLORIDE 0.9% 1,000 ML IV SCH (04:19)
[2019-02-21] MEDS ORDERED: ACETAMINOPHEN 325 MG TABLET PO PRN (04:30)
[2019-02-21] MEDS ORDERED: PROMETHAZINE 25 MG/ML, 1ML IM PRN ×2 (04:30→05:00)
[2019-02-21] MEDS ORDERED: ELETRIPTAN 40MG TABLET PO PRN (04:30)
[2019-02-21 07:22] VITALS: BP 109/72
[2019-02-21 09:00] LABS: MEAN CORPUSCULAR HEMOGLOBIN 29.1 pg (27.0-34.8); MEAN CORPUSCULAR HGB CONC 33.3 g/dL (32.4-35.8); MEAN CORPUSCULAR VOLUME 87.2 fL (80-100); MEAN PLATELET VOLUME 8.5 fL (7.4-10.4); PLATELET COUNT 219 x10^3/uL (130-400); RED CELL DISTRIBUTION WIDTH 12.4 % (9.6-15.2)
[2019-02-21] MEDS ORDERED: EVEROLIMUS 0.75 MG PO SCH (09:00)
[2019-02-21] MEDS ORDERED: CYCLOSPORINE-MODIFIED (NEORAL) 100 MG CAPSULE PO SCH (09:00)
[2019-02-21] MEDS ORDERED: CYCLOSPORINE MODIFIED 25 MG PO SCH (09:00)
[2019-02-21] MEDS ORDERED: DOXYCYCLINE 100MG TABLET PO SCH (09:00)
[2019-02-21] MEDS ORDERED: METOPROLOL SUCCINATE 100 MG TAB.ER.24H PO SCH (09:00)
[2019-02-21 09:17] LABS: BASOPHILS # (AUTO) 0.01 x10^3/uL (0-0.1); BASOPHILS % (AUTO) 0 % (0-1); EOSINOPHILS # (AUTO) 0.09 x10^3/uL (0-0.4); EOSINOPHILS % (AUTO) 1 % (1-7); LYMPHOCYTES # (AUTO) 1.07 x10^3/uL (1-3.4); LYMPHOCYTES % (AUTO) 11 % (22-44); MD SCAN; MONOCYTES # (AUTO) 0.09 x10^3/uL (0.2-0.8); MONOCYTES % (AUTO) 1 % (2-9); NEUTROPHILS # (AUTO) 8.67 x10^3/uL (1.8-6.8); NEUTROPHILS % (AUTO) 87 % (42-75)
[2019-02-21 09:29] LABS: ALBUMIN 2.4 g/dL (3.4-5.0); ANION GAP 6 mmol/L (5-15); CALCIUM 7.3 mg/dL (8.5-10.1); CHLORIDE 112 mmol/L (98-107)
[2019-02-21 09:34] LABS: ALANINE AMINOTRANSFERASE 16 U/L (12-78); ALKALINE PHOSPHATASE 53 U/L (45-117); BILIRUBIN,TOTAL 0.6 mg/dL (0.2-1.0); CREATININE 2.93 mg/dL (0.55-1.02); TOTAL PROTEIN 5.8 g/dL (6.4-8.2)
[2019-02-21] MEDS ORDERED: CEFTRIAXONE PMX 1GM/50ML 50 ML IV SCH ×2 (13:00→22:30)
[2019-02-21 13:08] VITALS: BP 119/76
[2019-02-21] MEDS ORDERED: DOXY100C2 PO (14:02)
[2019-02-21] MEDS ORDERED: CEFD300C37 PO (14:02)
[2019-02-21] MEDS ORDERED: PRAVASTATIN 20 MG TABLET PO SCH (21:00)
== END 2019-02-21 16:21 | disposition home or self-care (01) | DRG 194 ==
LOC: ED 22:40 → EDIP 23:05 → 4NW 02-21 00:07
PROVIDERS: ADMIT Family Medicine; ATTEND Family Medicine
DX: J18.9 Pneumonia, unspecified organism (principal); N18.4 Chronic kidney disease, stage 4 (severe); Z94.1 Heart transplant status; D64.9 Anemia, unspecified; E78.5 Hyperlipidemia, unspecified; E83.42 Hypomagnesemia; E86.0 Dehydration; I12.9 Hypertensive chronic kidney disease with stage 1 through stage 4 chronic kidney disease, or unspecified chronic kidney disease
CPT/HCPCS: 36415; 84145; 87400; 96372; 96374; 96375; 96376; 99285; J3490; 71045; 80053; 83605; 83690; 83735; 84100; 85025; 87040; J0696; J2405; J2550; J7060; J2270; J3475; J7030; J7512

== ENCOUNTER 2019-05-05 08:43 | Observation (INO) | payer BC ==
[~2019-05-05] VITALS: Ht 167.6 cm; Wt 58.5 kg
[~2019-05-05 08:43] MED LIST changes: +CEFD300C37 PO; +DOXY100C2 PO
[2019-05-05 09:16] VITALS: BP 132/90
[2019-05-05] MEDS ORDERED: SODIUM CHLORIDE 0.9% 1,000 ML IV SCH (09:17)
[2019-05-05] MEDS ORDERED: ONDANSETRON 2MG/ML, 2ML IVPush PRN (09:30)
[2019-05-05] MEDS ORDERED: ELETRIPTAN 40MG TABLET PO PRN (09:30)
[2019-05-05] MEDS ORDERED: OXYcodone IR 5MG TABLET PO PRN (09:30)
[2019-05-05] MEDS ORDERED: ACETAMINOPHEN 325 MG TABLET PO PRN (09:30)
[2019-05-05] MEDS ORDERED: morphine SULFATE 10 MG/ML, 1ML IVPush PRN (09:30)
[2019-05-05] MEDS ORDERED: hydrALAzine 20 MG/ML, 1ML IVPush PRN (09:30)
[2019-05-05] MEDS ORDERED: ONDANSETRON ODT 4 MG PO PRN (09:30)
[2019-05-05 09:34] LABS: BASOPHILS # (AUTO) 0.08 x10^3/uL (0-0.1); BASOPHILS % (AUTO) 1 % (0-1); EOSINOPHILS # (AUTO) 0.17 x10^3/uL (0-0.4); EOSINOPHILS % (AUTO) 2 % (1-7); LYMPHOCYTES # (AUTO) 2.06 x10^3/uL (1-3.4); LYMPHOCYTES % (AUTO) 18 % (22-44); MD NO; MEAN CORPUSCULAR HEMOGLOBIN 29.1 pg (27.0-34.8); MEAN CORPUSCULAR HGB CONC 33.3 g/dL (32.4-35.8); MEAN CORPUSCULAR VOLUME 87.5 fL (80-100); MEAN PLATELET VOLUME 7.7 fL (7.4-10.4); MONOCYTES % (AUTO) 4 % (2-9); NEUTROPHILS # (AUTO) 8.47 x10^3/uL (1.8-6.8); NEUTROPHILS % (AUTO) 75 % (42-75); PLATELET COUNT 270 x10^3/uL (130-400); RED BLOOD COUNT 4.72 x10^6/uL (3.82-5.3); RED CELL DISTRIBUTION WIDTH 12.3 % (9.6-15.2)
[2019-05-05 09:43] LABS: ALANINE AMINOTRANSFERASE 19 U/L (12-78); ALBUMIN 2.8 g/dL (3.4-5.0); ANION GAP 7 mmol/L (5-15); CALCIUM 8.9 mg/dL (8.5-10.1); CHLORIDE 108 mmol/L (98-107)
[2019-05-05 09:46] LABS: ALKALINE PHOSPHATASE 50 U/L (45-117); BILIRUBIN,TOTAL 0.7 mg/dL (0.2-1.0); CREATININE 3.07 mg/dL (0.55-1.02); TOTAL PROTEIN 6.3 g/dL (6.4-8.2)
[2019-05-05] MEDS ORDERED: PLEASE ENTER HEIGHT AND WEIGHT MC SCH (10:00)
[2019-05-05] MEDS ORDERED: LIDOCAINE 2%, 20ML ONE (10:19)
[2019-05-05] MEDS ORDERED: SODIUM CHLORIDE 0.9% 1,000ML IVBOLUS ONE (10:30)
[2019-05-05] MEDS: SODIUM BICARBONATE 650 MG TABLET PO SCH ×2 (11:00→16:00)
[2019-05-05] MEDS ORDERED: ONDA4TAB13 SL (17:14)
[2019-05-05 17:50] VITALS: BP 101/61
[2019-05-05] MEDS ORDERED: CYCLOSPORINE 100 MG/ML PO SCH (21:00)
[2019-05-05] MEDS ORDERED: METOPROLOL SUCCINATE 100 MG TAB.ER.24H PO SCH (21:00)
[2019-05-05] MEDS ORDERED: PRAVASTATIN 20 MG TABLET PO SCH (21:00)
[2019-05-05] MEDS ORDERED: EVEROLIMUS 0.75 MG PO SCH (21:00)
[2019-05-06] MEDS ORDERED: CYCLOSPORINE (SANDIMUNE) 100 MG CAPSULE PO SCH (09:00)
== END 2019-05-05 18:36 | disposition home or self-care (01) ==
LOC: INTOOBSV 08:43 → 5SO 08:43
PROVIDERS: ADMIT Internal Medicine Cardiovascular Disease; ATTEND Hospitalist
DX: R19.7 Diarrhea, unspecified (principal); R10.9 Unspecified abdominal pain; R00.0 Tachycardia, unspecified; E78.5 Hyperlipidemia, unspecified; I12.9 Hypertensive chronic kidney disease with stage 1 through stage 4 chronic kidney disease, or unspecified chronic kidney disease; N18.4 Chronic kidney disease, stage 4 (severe); G43.909 Migraine, unspecified, not intractable, without status migrainosus; D72.829 Elevated white blood cell count, unspecified; E86.0 Dehydration; Z94.1 Heart transplant status; Z99.2 Dependence on renal dialysis; Z79.899 Other long term (current) drug therapy
CPT/HCPCS: 36415; 36556; 71045; 80053; 80158; 83690; 85025; 93005; 96361; 96374; 96375; G0378; J2270; J2405; J3490; J7030

== ENCOUNTER 2019-09-14 15:40 | Inpatient (IN) | payer BC ==
[~2019-09-14] VITALS: Ht 167.6 cm; Wt 74.0 kg
[~2019-09-14 15:40] MED LIST changes: +ONDA4TAB13 SL
--- NOTE | 2019-09-14 16:30 | NUR ---
PT HAS CO OF N/V/D AND FEELING WEAK. PT TOLD TO COME IN BY CLAIMS AGENT RIGHT OF WAY. CARDIAC HX INCLUDING 2 HEART TRANSPLANTS, PLANNED KIDNEY TRANSPLANT IN NOVEMBER.
[2019-09-14] MEDS ORDERED: ONDANSETRON ODT 4 MG ONE (17:17)
[2019-09-14] MEDS ORDERED: MAALOX/HYOSCYAMINE/LIDOCAINE 45 ML BTL ONE (17:18)
[2019-09-14] MEDS ORDERED: ONDANSETRON 2MG/ML, 2ML ONE ×2 (17:24→23:43)
--- NOTE | 2019-09-14 17:26 | NUR ---
AT BEDSIDE TO START US IV
[2019-09-14] MEDS ORDERED: SODIUM CHLORIDE 0.9%, 500ML IVBOLUS ONE (17:30)
[2019-09-14] MEDS ORDERED: ONDANSETRON 2MG/ML, 2ML IVPush ONE (17:30)
[2019-09-14] MEDS ORDERED: MAALOX/HYOSCYAMINE/LIDOCAINE 45 ML BTL PO ONE (17:30)
[2019-09-14] MEDS ORDERED: SODIUM CHLORIDE FLUSH 10ML SYR IVF ONE (17:30)
[2019-09-14 17:46] LABS: BASOPHILS # (AUTO) 0.06 x10^3/uL (0-0.1); BASOPHILS % (AUTO) 1 % (0-1); EOSINOPHILS # (AUTO) 0.24 x10^3/uL (0-0.4); EOSINOPHILS % (AUTO) 2 % (1-7); LYMPHOCYTES # (AUTO) 1.73 x10^3/uL (1-3.4); LYMPHOCYTES % (AUTO) 15 % (22-44); MD NO; MEAN CORPUSCULAR HEMOGLOBIN 29.4 pg (27.0-34.8); MEAN CORPUSCULAR HGB CONC 33.7 g/dL (32.4-35.8); MEAN CORPUSCULAR VOLUME 87.2 fL (80-100); MEAN PLATELET VOLUME 8.2 fL (7.4-10.4); MONOCYTES # (AUTO) 0.23 x10^3/uL (0.2-0.8); MONOCYTES % (AUTO) 2 % (2-9); NEUTROPHILS # (AUTO) 9.39 x10^3/uL (1.8-6.8); NEUTROPHILS % (AUTO) 81 % (42-75); PLATELET COUNT 314 x10^3/uL (130-400); RED CELL DISTRIBUTION WIDTH 12.6 % (9.6-15.2)
--- NOTE | 2019-09-14 17:47 | NUR ---
IV ESTABLISHED, MEDICATED PER ORDERS.
[2019-09-14 17:53] LABS: ALBUMIN 3.1 g/dL (3.4-5.0); ANION GAP 7 mmol/L (5-15); CALCIUM 8.1 mg/dL (8.5-10.1); CHLORIDE 109 mmol/L (98-107)
[2019-09-14 18:02] LABS: ALANINE AMINOTRANSFERASE 30 U/L (12-78); ALKALINE PHOSPHATASE 57 U/L (45-117); BILIRUBIN,TOTAL 0.5 mg/dL (0.2-1.0); CREATININE 3.55 mg/dL (0.55-1.02); TROPONIN I 0.067 ng/mL (0.000-0.045)
[2019-09-14] MEDS ORDERED: SODIUM CHLORIDE 0.9% 1,000ML IVBOLUS ONE (18:30)
--- NOTE | 2019-09-14 18:52 | NUR ---
REPORT TO BHAVANI
--- NOTE | 2019-09-14 18:53 | NUR ---
REPORT RECEIVED FROM MARSHA POTTER.
--- NOTE | 2019-09-14 19:21 | NUR ---
PT RESTING ON GURNEY. PT'S AOX4. RESPS EVEN AND UNLABORED. PT STATED"I FEEL MUCH BETTER AFTER ZOFRAN."
--- NOTE | 2019-09-14 19:32 | NUR ---
EDMD AT BEDSIDE TO EXPLAIN ALL RESULTS AT THIS TIME.
--- NOTE | 2019-09-14 20:33 | NUR ---
pt resting on HOMETRAX. pt's aox4. resps even and unlabored. all monitors in place. call light within reach.
--- NOTE | 2019-09-14 20:46 | NUR ---
fernando rn: pt had episode of hr into the 30's. md in room to eval. crash cart at bedside. pt declines placement of transcutaneous pads at this time. aware. crash cart and monitorremain at bedside.
[2019-09-14] MEDS ORDERED: LOSA50TA14 PO (21:01)
[2019-09-14] MEDS ORDERED: SODI650T PO (21:02)
[2019-09-14] MEDS ORDERED: AMLO-150 PO (21:02)
[2019-09-14] MEDS ORDERED: CALC30CA PO (21:03)
--- NOTE | 2019-09-14 21:49 | NUR ---
pt resting on gurney. pt's aox4. resps even and unlabored. all monitors in place. call light within reach. pt denies any needs or concerns at this time.
--- NOTE | 2019-09-14 23:48 | NUR ---
PT MEDICATED PER EMAR FOR NAUSE AT THIS TIME. PT TOLERATED WELL.
[2019-09-15] MEDS ORDERED: ONDANSETRON 2MG/ML, 2ML IVPush ONE
--- NOTE | 2019-09-15 00:05 | NUR ---
REPORT GIVEN TO LOYDA POTTER. ALL QUESTIONS ANSWERED.
[2019-09-15 00:25] VITALS: BP 127/82
[2019-09-15] MEDS ORDERED: ONDANSETRON 2MG/ML, 2ML IVPush PRN (00:30)
[2019-09-15 07:15] VITALS: BP 115/75
[2019-09-15] MEDS ORDERED: LIDOCAINE 2%, 20ML ONE (09:01)
== END 2019-09-15 13:10 | disposition home or self-care (01) | DRG 260 ==
LOC: ED 20:06 → EDIP 20:44 → 5SO 09-15 00:19 → DCLOUNGE 09-15 13:05
PROVIDERS: ADMIT Family Medicine; ATTEND Internal Medicine
PROC: 0JH632Z Insertion of Monitoring Device into Chest Subcutaneous Tissue and Fascia, Percutaneous Approach (ICD-10-PCS; principal; 2019-09-15)
DX: I47.1 Supraventricular tachycardia (principal); K85.00 Idiopathic acute pancreatitis without necrosis or infection; Z94.1 Heart transplant status; E78.5 Hyperlipidemia, unspecified; I12.9 Hypertensive chronic kidney disease with stage 1 through stage 4 chronic kidney disease, or unspecified chronic kidney disease; K80.20 Calculus of gallbladder without cholecystitis without obstruction; N18.9 Chronic kidney disease, unspecified; G43.909 Migraine, unspecified, not intractable, without status migrainosus; Z79.899 Other long term (current) drug therapy; Z88.8 Allergy status to other drugs, medicaments and biological substances
CPT/HCPCS: 33285; 36415; J3490; 76700; 80053; 83690; 84484; 84703; 85025; 93005; C1764; J2405; J7030; J7040

== ENCOUNTER 2020-04-05 09:51 | Day surgery (SDC) | payer BC ==
[~2020-04-05] VITALS: Ht 167.6 cm; Wt 59.0 kg
[~2020-04-05 09:51] MED LIST changes: +AMLO-150 PO; +CALC30CA PO; +LOSA50TA14 PO; +SODI650T PO
[2020-04-05 10:35] VITALS: BP 145/109
[2020-04-05] MEDS ORDERED: CYCL100C PO (10:48)
[2020-04-05] MEDS ORDERED: MYCO500T PO (10:48)
[2020-04-05 11:34] LABS: BASOPHILS % (AUTO) 1 % (0-1); EOSINOPHILS % (AUTO) 2 % (1-7); LYMPHOCYTES % (AUTO) 29 % (22-44); MEAN CORPUSCULAR HEMOGLOBIN 30.2 pg (27.0-34.8); MEAN PLATELET VOLUME 7.7 fL (7.4-10.4); MONOCYTES % (AUTO) 10 % (2-9); NEUTROPHILS % (AUTO) 58 % (42-75); PLATELET COUNT 239 x10^3/uL (130-400); RED BLOOD COUNT 3.77 x10^6/uL (3.82-5.3); RED CELL DISTRIBUTION WIDTH 12.5 % (9.6-15.2)
[2020-04-05 11:35] LABS: MD NO
[2020-04-05 11:45] LABS: ANION GAP 10 mmol/L (5-15); CALCIUM 8.9 mg/dL (8.5-10.1); CHLORIDE 107 mmol/L (98-107); CREATININE 3.09 mg/dL (0.55-1.02)
[2020-04-05] MEDS ORDERED: FENTANYL PF 100 MCG/2ML ONE ×2 (13:49→14:01)
[2020-04-05] MEDS ORDERED: LIDOCAINE 2%, 20ML ONE (13:49)
[2020-04-05] MEDS ORDERED: MIDAZOLAM 1 MG/ML, 5ML ONE ×2 (13:49→14:01)
[2020-04-05] MEDS ORDERED: SODIUM CHLORIDE 0.9% 1,000 ML IV SCH (14:30)
== END 2020-04-05 16:03 | disposition home or self-care (01) ==
LOC: CACL 09:51
PROVIDERS: ATTEND Internal Medicine Cardiovascular Disease
DX: R00.1 Bradycardia, unspecified (principal); I47.1 Supraventricular tachycardia; N18.9 Chronic kidney disease, unspecified; Z79.899 Other long term (current) drug therapy; Z88.8 Allergy status to other drugs, medicaments and biological substances
CPT/HCPCS: 36415; 80048; 85025; 93454; 99156; C1760; C1769; C1894; J2250; J3010; Q9967